=== PATIENT | female | born 1985 | race Caucasian/White ===

== ENCOUNTER 2018-01-23 00:44 | Inpatient (IN) | payer BC ==
[2018-01-23] MEDS ORDERED: Oxytocin/0.9 % Sodium Chloride 30 UNIT/500 ML BAG ONE (00:59)
[2018-01-23] MEDS ORDERED: Water For Irrigation,Sterile 1,000 ML Container IRR PRN (01:05)
[2018-01-23] MEDS ORDERED: Nalbuphine 10 MG/1 ML Vial IVPUSH PRN (01:05)
[2018-01-23] MEDS ORDERED: Methylergonovine 0.2 MG/1 ML Amp IM PRN (01:05)
[2018-01-23] MEDS ORDERED: Carboprost Tromethamine 250 MCG/1 ML Amp IM PRN (01:05)
[2018-01-23] MEDS ORDERED: Sodium Chloride 0.9% 10 ML Syringe FLUSH PRN (01:05)
[2018-01-23] MEDS ORDERED: Lidocaine 1% 50 ML MDV INJECT PRN (01:05)
[2018-01-23] MEDS ORDERED: Tranexamic Acid 1,000 MG in Sodium Chloride 0.9% 100 ML IV PRN (01:05)
[2018-01-23] MEDS ORDERED: Butorphanol 1 MG/ML SDV IVPUSH PRN (01:05)
[2018-01-23] MEDS ORDERED: Sodium Chloride 0.9% 2.5 ML Syringe FLUSH PRN (01:05)
[2018-01-23] MEDS ORDERED: Misoprostol 200 MCG Tab PO PRN (01:05)
[2018-01-23] MEDS ORDERED: Lactated Ringers 1,000 ML IV SCH (01:15)
[2018-01-23] MEDS ORDERED: Oxytocin/0.9 % Sodium Chloride 30 UNIT/500 ML BAG IV SCH (01:15)
[2018-01-23] MEDS ORDERED: Benzocaine/Menthol 20%-0.5% Spray 78 GM Cannister TOP PRN (02:48)
[2018-01-23] MEDS ORDERED: Bisacodyl 10 MG Supp RECTAL PRN (02:48)
[2018-01-23] MEDS ORDERED: Ibuprofen 400 MG Tab PO PRN (02:48)
[2018-01-23] MEDS ORDERED: Acetaminophen 500 MG Tab PO PRN (02:48)
[2018-01-23] MEDS ORDERED: oxyCODONE 5 MG Tab PO PRN (02:48)
[2018-01-23] MEDS ORDERED: Witch Hazel Medicated Pads 40/Jar TOP PRN (02:48)
[2018-01-23] MEDS ORDERED: Lanolin 100% Cream 7 GM Tube TOP PRN (02:48)
[2018-01-23] MEDS ORDERED: Docusate Sodium 100 MG Cap PO PRN (02:48)
[2018-01-23] MEDS: Acetaminophen 500 MG Tab PO PRN ×2 (03:03→22:40)
[2018-01-23] MEDS: Ibuprofen 800 MG Tab PO PRN ×3 (04:45→18:27)
--- NOTE | 2018-01-23 05:36 | OR ---
SURGEON: KENNY JUNG DATE OF PROCEDURE: 01/23/2018 PREOPERATIVE DIAGNOSIS: A 32-year-old, G2, P1, at 39 weeks 0 days, admitted in second stage of labor, GBS negative. POSTOPERATIVE DIAGNOSIS: Status post vaginal delivery Second-degree perineal laceration and Left Periurethral laceration. EBL: 300ml. PROCEDURE: Spontaneous vaginal delivery and repair of perineal and periurethral laceration. ANESTHESIA: Local. FINDINGS: Live male delivered at 1:24 a.m. scores 9 and 9. Weight 3790 g. Three-vessel cord noted. Periureteral laceration and second-degree laceration which was repaired.3VC , intact placenta BRIEF HISTORY: She is a 32-year-old, G2, P1-0-0-1, who came in complaining of contractions and rupture of membranes. She was examined and found to be fully dilated at +2 station. With the patient being fully dilated at +2 station, she was encouraged to push. PROCEDURE IN DETAIL: With good pushing effort, the infant's head was delivered, subsequently by the anterior and posterior shoulder, then the 's body. was placed on maternal abdomen. Delayed cord clamping was observed. Pitocin was then started. The placenta was delivered via controlled cord traction. The perineum was inspected and a second-degree perineal laceration was noted. The second- degree laceration was repaired with 2-0 Vicryl on a [address]1. The periurethral was repaired with 3-0 Monoc[address] on a [address]1. Hemostasis was noted after the procedure. All instrument and pad counts were correct x2. The patient was left with in stable condition. LAYA SCHNEIDER /[id number] NICOLE
[2018-01-24] MEDS: Ibuprofen 800 MG Tab PO PRN (07:51)
[2018-01-24 08:59] VITALS: BP 141/82
--- NOTE | 2018-01-24 09:44 | PCM.PNPP ---
- General Info Date of Service: 01/24/18 Admission Dx/Problem (Free Text): 32 yo P2 s/p , Functional Status: Reports: Pain Controlled, Tolerating Diet, Ambulating, Urinating - Review of Systems General: Denies: Fever, Weakness Cardiovascular: Denies: Chest Pain, Palpitations, Lightheadedness Gastrointestinal: Reports: Flatus. Denies: Abdominal Pain, Nausea, Vomiting Genitourinary: Denies: Flank Pain Skin: Reports: No Symptoms Psychiatric: Reports: No Symptoms - General Info Date of Service: 01/24/18 - Patient Data Vital Signs - Most Recent: Last Vital Signs Temp 36.6 C 01/24/18 08:00 Pulse 76 01/24/18 08:00 Resp 18 01/24/18 08:00 BP 141/82 H 01/24/18 08:00 Pulse Ox 98 01/24/18 08:00 Weight - Most Recent: 95.254 kg Lab Results - Last 24 Hours: Laboratory Results - last 24 hr 01/24/18 Range/Units 05:15 Hgb 11.6 L (12.0-16.0) g/dL Hct 34.9 L (36.0-46.0) % Med Orders - Current: Current Medications Acetaminophen (Tylenol Extra Strength) 500 mg PO Q4H PRN PRN Reason: Pain Acetaminophen (Tylenol Extra Strength) 1,000 mg PO Q4H PRN PRN Reason: Pain Last Admin: 01/23/18 22:40 Dose: 1,000 mg Benzocaine/Menthol (Dermoplast Pain Relief 20%-0.5% [place]) 78 gm TOP ASDIRECTED PRN PRN Reason: Perineal Comfort Measure Last Admin: 01/23/18 04:44 Dose: 78 mg Bisacodyl (Dulcolax) 10 mg RECTAL .ONCE PRN PRN Reason: Constipation Carboprost Tromethamine (Hemabate Ds) 250 mcg IM ASDIRECTED PRN PRN Reason: Post Hemorrhage Docusate Sodium (Colace) 100 mg PO BID PRN PRN Reason: Constipation Last Admin: 01/23/18 11:15 Dose: 100 mg Emollient Ointment (Lansinoh Hpa) 0 gm TOP ASDIRECTED PRN PRN Reason: Sore Nipples Lactated Ringer's (Ringers, Lactated) 1,000 mls @ 150 mls/hr IV ASDIRECTED [facility] Last Admin: 01/23/18 01:00 Dose: 150 mls/hr Oxytocin/Sodium Chloride (Oxytocin 30 Unit/500 Ml-Ns) 30 unit in 500 mls @ 999 mls/hr IV TITRATE [facility] Last Admin: 01/23/18 01:25 Dose: 999 mls/hr Tranexamic Acid 1,000 mg/ (Sodium Chloride) 110 mls @ 660 mls/hr IV ONETIME PRN PRN Reason: Bleeding Ibuprofen (Motrin) 400 mg PO Q4H PRN PRN Reason: Pain Ibuprofen (Motrin) 800 mg PO Q6H PRN PRN Reason: Pain Last Admin: 01/24/18 07:51 Dose: 800 mg Methylergonovine Maleate (Methergine) 0.2 mg IM ASDIRECTED PRN PRN Reason: Post Hemorrhage Misoprostol (Cytotec) 200 mcg PO .ONCE PRN PRN Reason: Post Hemorrhage Oxycodone HCl (Oxycodone) 5 mg PO Q2H PRN PRN Reason: Pain Sodium Chloride (Saline Flush) 10 ml FLUSH ASDIRECTED PRN PRN Reason: Keep Vein Open Sodium Chloride (Saline Flush) 2.5 ml FLUSH ASDIRECTED PRN PRN Reason: Keep Vein Open Sterile Water (Sterile Water For Irrigation) 1,000 ml IRR ASDIRECTED PRN PRN Reason: delivery Last Admin: 01/23/18 01:23 Dose: 1,000 ml Witch Latoya (Tucks) 1 pad TOP ASDIRECTED PRN PRN Reason: comfort care Discontinued Medications Butorphanol Tartrate (Stadol) 1 mg IVPUSH Q1H PRN PRN Reason: Pain Oxytocin/Sodium Chloride (Oxytocin 30 Unit/500 Ml-Ns) Confirm Administered Dose 30 unit in 500 mls @ as directed .ROUTE .STK-MED ONE Stop: 01/23/18 01:00 Last Admin: 01/23/18 01:51 Dose: Not Given Lidocaine HCl (Xylocaine 1%) 50 ml INJECT .ONCE PRN PRN Reason: Laceration repair Last Admin: 01/23/18 01:44 Dose: 50 ml Nalbuphine HCl (Nubain) 10 mg IVPUSH Q1H PRN PRN Reason: Pain (severe 7-10) - Infant Interaction Disposition, : [place] in Room with Family Support Person: - Recovery Exam Fundal Tone: Firm Fundal Level: 1 Fingerbreadths Below Umbilicus Fundal Placement: Midline Lochia Amount: Scant Lochia Color: Rubra/Red Perineum Description: Intact, Minimal Bruising/Swelling Other Perinuem Description: 2nd degree laceration with repair Episiotomy/Laceration: Approximated Bladder Status: Voiding Urinary Elimination: Voided - Exam General: Alert, Oriented Lungs: Normal Respiratory Effort Cardiovascular: Regular Rate, Regular Rhythm GI/Abdominal Exam: Normal Bowel Sounds, Soft Extremities: Pedal Edema (trace). No: Roseline's Sign Psy/Mental Status: Alert, Normal Affect - Problem List & Annotations (1) Vaginal delivery SNOMED Code(s): 507445285 Code(s): O80 - ENCOUNTER FOR FULL-TERM UNCOMPLICATED DELIVERY Status: Acute Current Visit: Yes - Problem List Review Problem List Initiated/Reviewed/Updated: Yes - My Orders Last 24 Hours: My Active Orders 01/24/18 09:41 Ready for Discharge [RC] PER UNIT ROUTINE - Assessment Assessment:: PPD 1 status post /2nd MLL repaired - Plan Plan:: Patient would like to go home today. discharge instructions reviewed. Follow up at [facility] 6 weeks. Continue PNV daily. Infection and bleeding warnings reviewed. Discharge to home.
== END 2018-01-24 11:20 | disposition home or self-care (01) | DRG 560 ==
LOC: MW.OBCHECK 00:44 → MW.OB 00:45 → MW.OBCHECK 01:05 → OBSVTOIN 01:24 → MW.OB 06:04
PROVIDERS: ADMIT Obstetrics & Gynecology; ATTEND Obstetrics & Gynecology
PROC: 10E0XZZ Delivery of Products of Conception, External Approach (ICD-10-PCS; principal; 2018-01-23)
PROC: 0KQM0ZZ Repair Perineum Muscle, Open Approach (ICD-10-PCS; 2018-01-23)
PROC: 0UQMXZZ Repair Vulva, External Approach (ICD-10-PCS; 2018-01-23)
DX: O70.1 Second degree perineal laceration during delivery (principal); O71.82 Other specified trauma to perineum and vulva; Z3A.39 39 weeks gestation of pregnancy; Z37.0 Single live birth
CPT/HCPCS: 36415; 51701; 59025; 59409; 85014; 85018; 85027; 86850; 86900; 86901; A9270-GY; J2590; J7120